=== PATIENT | female | born 1945 | race Caucasian/White ===

== ENCOUNTER → 2018-05-02 | Outpatient (CLI) | payer MEDICARE, MEDICAID ==
[~2018-05-02] MED LIST: ASCO-96 PO; CALCIUM PO; CHOL10003 PO; CLON-365 PO; CLOZ25TA6 PO; ESOM40CA PO; GARL10002 PO; GLIM2TAB2 PO; IRON PO; PROP1DRO6 EACHEYE; TRAM50TA2 PO
[2018-05-02 12:18] LABS: BASOPHILS # (AUTO) 0.05 x10^3/uL (0-0.1); BASOPHILS % (AUTO) 1 % (0-1); EOSINOPHILS # (AUTO) 0.16 x10^3/uL (0-0.4); EOSINOPHILS % (AUTO) 2 % (1-7); LYMPHOCYTES # (AUTO) 2.48 x10^3/uL (1-3.4); LYMPHOCYTES % (AUTO) 35 % (22-44); MD NO; MEAN CORPUSCULAR HEMOGLOBIN 29.2 pg (27.0-34.8); MEAN CORPUSCULAR HGB CONC 33.3 g/dL (32.4-35.8); MEAN CORPUSCULAR VOLUME 87.7 fL (80-100); MEAN PLATELET VOLUME 7.7 fL (7.4-10.4); MONOCYTES # (AUTO) 0.75 x10^3/uL (0.2-0.8); MONOCYTES % (AUTO) 11 % (2-9); NEUTROPHILS # (AUTO) 3.65 x10^3/uL (1.8-6.8); NEUTROPHILS % (AUTO) 51 % (42-75); PLATELET COUNT 298 x10^3/uL (130-400); RED BLOOD COUNT 4.84 x10^6/uL (3.82-5.3); RED CELL DISTRIBUTION WIDTH 15.6 % (9.6-15.2)
[2018-05-02 12:24] LABS: INTERNATIONAL NORMALIZED RATIO 0.99 (0.93-1.1); PROTHROMBIN TIME 10.2 Seconds (9.6-11.5)
[2018-05-02 12:29] LABS: CHLORIDE 107 mmol/L (98-107)
[2018-05-02 12:32] LABS: MICROSCOPIC NOT IND
[2018-05-02 12:35] LABS: CULTURE INDICATED? NO
[2018-05-02 12:37] LABS: ALANINE AMINOTRANSFERASE 24 U/L (12-78); ALBUMIN 3.8 g/dL (3.4-5.0); ALKALINE PHOSPHATASE 99 U/L (45-117); ANION GAP 6 mmol/L (5-15); BILIRUBIN,TOTAL 0.5 mg/dL (0.2-1.0); CALCIUM 9.3 mg/dL (8.5-10.1); CREATININE 0.67 mg/dL (0.55-1.02); TOTAL PROTEIN 8.2 g/dL (6.4-8.2)
== END | disposition home or self-care (01) ==
LOC: STAR 11:02
PROVIDERS: ATTEND Neurological Surgery
DX: Z01.818 Encounter for other preprocedural examination (principal); M51.36 Other intervertebral disc degeneration, lumbar region
CPT/HCPCS: 36415; 71046; 80053; 81003; 85025; 85610; 85730; 93005

== ENCOUNTER 2018-05-11 08:49 | Inpatient (IN) | payer MEDICARE, MEDICAID ==
[~2018-05-11] VITALS: Ht 157.5 cm; Wt 78.9 kg
[~2018-05-11 08:49] MED LIST changes: +BACITRACIN 50,000 UNIT ONE; +BUPIVACAINE 0.25% ONE; +BUPIVACAINE/PF 0.5% ONE; +EPINEPHRINE 1 MG/ML, 1ML ONE; +THROMBIN 20,000 UNIT VIAL TP ONE
[2018-05-11] MEDS ORDERED: LACTATED RINGERS 1,000 ML IV SCH (09:17)
[2018-05-11 09:24] VITALS: BP 144/97
[2018-05-11] MEDS ORDERED: FENTANYL PF 250 MCG/5ML ONE (09:37)
[2018-05-11] MEDS ORDERED: MIDAZOLAM 1 MG/ML, 2ML ONE (09:37)
[2018-05-11] MEDS ORDERED: ACETAMINOPHEN 500 MG TABLET PO ONE (10:00)
[2018-05-11] MEDS ORDERED: OxyconTIN ER 10 MG TAB.ER PO ONE (10:00)
[2018-05-11] MEDS ORDERED: GABAPENTIN 300 MG CAPSULE PO ONE (10:00)
[2018-05-11] MEDS ORDERED: DIAZEPAM 5 MG TABLET PO ONE (10:00)
[2018-05-11] MEDS ORDERED: PHENYLEPHRINE 10 MG/ML ONE (11:31)
[2018-05-11] MEDS ORDERED: DIAZEPAM 5 MG/ML, 2ML IVPush PRN (12:30)
[2018-05-11] MEDS ORDERED: hydrALAzine 20 MG/ML, 1ML IV PRN (12:30)
[2018-05-11] MEDS ORDERED: ALBUTEROL/IPRATROPIUM 2.5MG/0.5MG, 3 ML NPPB PRN (12:30)
[2018-05-11] MEDS ORDERED: FENTANYL PF 100 MCG/2ML IV PRN (12:30)
[2018-05-11] MEDS ORDERED: MIDAZOLAM 1 MG/ML, 2ML IV PRN (12:30)
[2018-05-11] MEDS ORDERED: MORPHINE SULFATE 4 MG/ML, 1ML IVPush PRN (12:30)
[2018-05-11] MEDS ORDERED: MEPERIDINE/PF 25MG/0.5ML IVPush PRN (12:30)
[2018-05-11] MEDS ORDERED: ONDANSETRON ODT 8 MG PO PRN (12:30)
[2018-05-11] MEDS ORDERED: EPHEDRINE 50 MG/ML, 1ML IM PRN (12:30)
[2018-05-11] MEDS ORDERED: OXYcodone 5 MG/5 ML ORAL.SOL UDC PO PRN (12:30)
[2018-05-11] MEDS ORDERED: PROMETHAZINE 25 MG/ML, 1ML IV PRN (12:30)
[2018-05-11] MEDS ORDERED: BUPIVACAINE/PF-EPI 0.5% 1:200K IM ONE (12:31)
[2018-05-11] MEDS ORDERED: SUCCINYLCHOLINE 20 MG/ML, 10ML ONE (13:00)
[2018-05-11] MEDS ORDERED: NEOSTIGMINE 1 MG/ML, 10ML ONE (13:00)
[2018-05-11] MEDS ORDERED: ROCURONIUM 10MG/ML,5ML ONE (13:00)
[2018-05-11] MEDS ORDERED: ONDANSETRON 2MG/ML, 2ML ONE (13:00)
[2018-05-11] MEDS ORDERED: PROPOFOL 50 ML ONE ×2 (13:00→14:38)
[2018-05-11] MEDS ORDERED: PROPOFOL 10 MG/ML, 20ML ONE (13:00)
[2018-05-11] MEDS ORDERED: DEXAMETHASONE 4 MG/ML, 1ML ONE (13:00)
[2018-05-11] MEDS ORDERED: GLYCOPYRROLATE 0.2MG/1ML, 5ML ONE (13:00)
[2018-05-11] MEDS ORDERED: CEFAZOLIN 1,000 MG ONE (13:00)
[2018-05-11] MEDS ORDERED: FENTANYL PF 100 MCG/2ML ONE ×3 (14:10→16:09)
[2018-05-11] MEDS ORDERED: BUPIVACAINE LIPOSOME/PF INFIL ONE (14:16)
[2018-05-11] MEDS ORDERED: BUPIVACAINE 0.25% ONE (14:20)
[2018-05-11] MEDS ORDERED: MEPERIDINE/PF 50 MG/ML ONE (16:04)
[2018-05-11] MEDS ORDERED: HYDROmorphone 2 MG/ML, 1ML ONE (16:14)
[2018-05-11] MEDS: HYDROmorphone 1 MG/ML, 1ML IV PRN ×3 (16:20→16:38)
[2018-05-11] MEDS: LABETALOL 5MG/ML, 20ML IV PRN ×2 (16:55→17:03)
[2018-05-11] MEDS ORDERED: LABETALOL 5MG/ML, 20ML ONE (16:55)
[2018-05-11] MEDS ORDERED: HYDROcodone/APAP 5/325 TABLET PO PRN (18:00)
[2018-05-11] MEDS ORDERED: LABETALOL 5MG/ML, 20ML IV PRN (18:00)
[2018-05-11] MEDS ORDERED: ONDANSETRON 2MG/ML, 2ML IV PRN (18:00)
[2018-05-11] MEDS ORDERED: BISACODYL 10 MG SUPP PR PRN (18:00)
[2018-05-11 19:20] VITALS: BP 167/69
[2018-05-11] MEDS: METHOCARBAMOL 750 MG TABLET PO PRN (19:52)
[2018-05-11] MEDS: NS + 20MEQ KCL 1,000 ML IV SCH (20:18)
[2018-05-11] MEDS: CEFAZOLIN PMX 1GM/50ML 50 ML IVPB SCH (20:18)
[2018-05-11] MEDS: CLOZAPINE 100 MG TABLET HOMEMEDPO SCH (21:00)
[2018-05-11] MEDS: INSULIN REGULAR 100 UNITS/ML, 3ML VIAL SQ-INSULIN SCH (21:00)
[2018-05-11] MEDS: SYSTANE OP SCH (21:00)
[2018-05-11] MEDS: ASCORBIC ACID 500 MG TABLET PO SCH (21:11)
[2018-05-11] MEDS: HYDROcodone/APAP 10/325 MG TABLET PO PRN (21:11)
[2018-05-11] MEDS: morphine SULFATE 10 MG/ML, 1ML IV PRN ×2 (23:12→23:31)
[2018-05-12 00:54] VITALS: BP 144/64
[2018-05-12] MEDS: HYDROcodone/APAP 10/325 MG TABLET PO PRN ×6 (02:10→22:37)
[2018-05-12] MEDS: METHOCARBAMOL 750 MG TABLET PO PRN ×3 (03:44→21:24)
[2018-05-12] MEDS: CEFAZOLIN PMX 1GM/50ML 50 ML IVPB SCH (03:44)
[2018-05-12] MEDS: NS + 20MEQ KCL 1,000 ML IV SCH ×2 (03:55→14:00)
[2018-05-12] MEDS: SYSTANE OP SCH ×4 (03:55→21:19)
[2018-05-12 04:07] VITALS: BP 144/70
[2018-05-12 04:47] LABS: BASOPHILS # (AUTO) 0.01 x10^3/uL (0-0.1); BASOPHILS % (AUTO) 0 % (0-1); EOSINOPHILS % (AUTO) 0 % (1-7); LYMPHOCYTES # (AUTO) 1.34 x10^3/uL (1-3.4); LYMPHOCYTES % (AUTO) 10 % (22-44); MD NO; MEAN CORPUSCULAR HEMOGLOBIN 29.4 pg (27.0-34.8); MEAN CORPUSCULAR HGB CONC 33.2 g/dL (32.4-35.8); MEAN CORPUSCULAR VOLUME 88.5 fL (80-100); MONOCYTES # (AUTO) 0.96 x10^3/uL (0.2-0.8); MONOCYTES % (AUTO) 7 % (2-9); NEUTROPHILS # (AUTO) 11.06 x10^3/uL (1.8-6.8); NEUTROPHILS % (AUTO) 83 % (42-75); PLATELET COUNT 269 x10^3/uL (130-400); RED BLOOD COUNT 4.23 x10^6/uL (3.82-5.3); RED CELL DISTRIBUTION WIDTH 15.3 % (9.6-15.2)
[2018-05-12 04:58] LABS: CHLORIDE 108 mmol/L (98-107)
[2018-05-12 05:02] LABS: ANION GAP 8 mmol/L (5-15); CALCIUM 8.6 mg/dL (8.5-10.1); CREATININE 0.77 mg/dL (0.55-1.02)
[2018-05-12] MEDS: ENOXAPARIN 40 MG/0.4 ML SQ SCH (06:23)
[2018-05-12] MEDS: INSULIN REGULAR 100 UNITS/ML, 3ML VIAL SQ-INSULIN SCH ×4 (07:00→21:00)
[2018-05-12 07:04] VITALS: BP 123/68
[2018-05-12] MEDS ORDERED: PANTOPROZOLE 40MG TABLET PO SCH (07:30)
[2018-05-12] MEDS: GLIMEPIRIDE 1 MG TABLET PO SCH (08:13)
[2018-05-12] MEDS: SENNA/DOCUSATE TABLET PO SCH (08:15)
[2018-05-12] MEDS: ASCORBIC ACID 500 MG TABLET PO SCH ×2 (08:17→21:18)
[2018-05-12] MEDS: CHOLECALCIFEROL 400 UNITS TABLET PO SCH (08:19)
[2018-05-12] MEDS: DOXYCYCLINE 100MG TABLET PO SCH ×2 (08:20→21:18)
[2018-05-12] MEDS ORDERED: CHOLECALCIFEROL 400 UNITS TABLET PO SCH (09:00)
[2018-05-12] MEDS: CLOZAPINE 100 MG TABLET HOMEMEDPO SCH ×3 (09:00→21:20)
[2018-05-12 12:58] VITALS: BP 127/73
[2018-05-12 19:09] VITALS: BP 132/69
[2018-05-13 01:11] VITALS: BP 139/75
[2018-05-13] MEDS: HYDROcodone/APAP 10/325 MG TABLET PO PRN ×3 (02:42→20:37)
[2018-05-13 04:52] LABS: BASOPHILS # (AUTO) 0.05 x10^3/uL (0-0.1); BASOPHILS % (AUTO) 0 % (0-1); EOSINOPHILS # (AUTO) 0.11 x10^3/uL (0-0.4); EOSINOPHILS % (AUTO) 1 % (1-7); LYMPHOCYTES # (AUTO) 1.57 x10^3/uL (1-3.4); LYMPHOCYTES % (AUTO) 11 % (22-44); MD NO; MEAN CORPUSCULAR HGB CONC 33.9 g/dL (32.4-35.8); MEAN CORPUSCULAR VOLUME 88.3 fL (80-100); MEAN PLATELET VOLUME 7.9 fL (7.4-10.4); MONOCYTES # (AUTO) 1.34 x10^3/uL (0.2-0.8); MONOCYTES % (AUTO) 10 % (2-9); NEUTROPHILS # (AUTO) 10.65 x10^3/uL (1.8-6.8); NEUTROPHILS % (AUTO) 78 % (42-75); PLATELET COUNT 252 x10^3/uL (130-400); RED BLOOD COUNT 4.16 x10^6/uL (3.82-5.3); RED CELL DISTRIBUTION WIDTH 16.2 % (9.6-15.2)
[2018-05-13] MEDS: ENOXAPARIN 40 MG/0.4 ML SQ SCH (06:03)
[2018-05-13] MEDS: SYSTANE OP SCH ×4 (06:04→20:53)
[2018-05-13] MEDS: METHOCARBAMOL 750 MG TABLET PO PRN (06:04)
[2018-05-13] MEDS: INSULIN REGULAR 100 UNITS/ML, 3ML VIAL SQ-INSULIN SCH ×4 (06:25→20:48)
[2018-05-13 07:00] VITALS: BP 114/68
[2018-05-13] MEDS: DOXYCYCLINE 100MG TABLET PO SCH ×2 (09:04→20:39)
[2018-05-13] MEDS: SENNA/DOCUSATE TABLET PO SCH (09:04)
[2018-05-13] MEDS: GLIMEPIRIDE 1 MG TABLET PO SCH (09:05)
[2018-05-13] MEDS: ASCORBIC ACID 500 MG TABLET PO SCH ×2 (09:06→20:39)
[2018-05-13] MEDS: NEXIUM HOMEMEDPO SCH (09:09)
[2018-05-13] MEDS: CLOZAPINE 100 MG TABLET HOMEMEDPO SCH ×2 (09:09→20:52)
[2018-05-13] MEDS: NS + 20MEQ KCL 1,000 ML IV SCH ×3 (09:49→20:00)
[2018-05-13] MEDS: CHOLECALCIFEROL 400 UNITS TABLET PO SCH (10:02)
[2018-05-13 14:30] VITALS: BP 98/65
[2018-05-13 17:57] VITALS: BP 147/50
[2018-05-13 20:35] VITALS: BP 132/81
[2018-05-13] MEDS: KETOROLAC 30 MG/1 ML IM PRN (20:40)
[2018-05-14 02:50] VITALS: BP 134/79
[2018-05-14 05:22] LABS: MEAN CORPUSCULAR HEMOGLOBIN 29.9 pg (27.0-34.8); MEAN CORPUSCULAR HGB CONC 33.5 g/dL (32.4-35.8); MEAN CORPUSCULAR VOLUME 89.1 fL (80-100); PLATELET COUNT 261 x10^3/uL (130-400); RED BLOOD COUNT 4.28 x10^6/uL (3.82-5.3); RED CELL DISTRIBUTION WIDTH 16.1 % (9.6-15.2)
[2018-05-14] MEDS: ENOXAPARIN 40 MG/0.4 ML SQ SCH (05:29)
[2018-05-14] MEDS: SYSTANE OP SCH ×4 (05:29→22:05)
[2018-05-14] MEDS: NS + 20MEQ KCL 1,000 ML IV SCH ×2 (05:29→16:47)
[2018-05-14] MEDS: HYDROcodone/APAP 10/325 MG TABLET PO PRN ×4 (05:29→22:07)
[2018-05-14] MEDS: INSULIN REGULAR 100 UNITS/ML, 3ML VIAL SQ-INSULIN SCH ×4 (05:58→21:00)
[2018-05-14 06:22] LABS: BASOPHILS # (AUTO) 0.01 x10^3/uL (0-0.1); BASOPHILS % (AUTO) 0 % (0-1); EOSINOPHILS % (AUTO) 1 % (1-7); LYMPHOCYTES # (AUTO) 1.62 x10^3/uL (1-3.4); LYMPHOCYTES % (AUTO) 12 % (22-44); MD SCAN; MONOCYTES # (AUTO) 1.64 x10^3/uL (0.2-0.8); MONOCYTES % (AUTO) 12 % (2-9); NEUTROPHILS # (AUTO) 10.61 x10^3/uL (1.8-6.8); NEUTROPHILS % (AUTO) 75 % (42-75)
[2018-05-14 07:09] VITALS: BP 117/77
[2018-05-14] MEDS: CHOLECALCIFEROL 400 UNITS TABLET PO SCH (07:57)
[2018-05-14] MEDS: ASCORBIC ACID 500 MG TABLET PO SCH ×2 (07:58→22:06)
[2018-05-14] MEDS: GLIMEPIRIDE 1 MG TABLET PO SCH (07:58)
[2018-05-14] MEDS: DOXYCYCLINE 100MG TABLET PO SCH ×2 (07:58→22:06)
[2018-05-14] MEDS: SENNA/DOCUSATE TABLET PO SCH (07:59)
[2018-05-14] MEDS: CLOZAPINE 100 MG TABLET HOMEMEDPO SCH ×2 (08:04→22:04)
[2018-05-14] MEDS: NEXIUM HOMEMEDPO SCH (08:04)
[2018-05-14] MEDS: IRON 27 MG HOMEMEDPO SCH (08:05)
[2018-05-14] MEDS: CALCIUM 600 MG HOMEMEDPO SCH ×2 (08:05→21:00)
[2018-05-14] MEDS ORDERED: CEFTRIAXONE PMX 1GM/50ML 50 ML IV ONE (09:00)
[2018-05-14] MEDS ORDERED: MAGNESIUM CITRATE 300ML ORAL SOL PO PRN (09:00)
[2018-05-14] MEDS: POLYETHYLENE GLYCOL 17 GM PACKET PO SCH (09:57)
[2018-05-14 14:00] VITALS: BP 133/68
[2018-05-14 19:44] VITALS: BP 114/68
[2018-05-14] MEDS: METHOCARBAMOL 750 MG TABLET PO PRN (22:06)
[2018-05-14] MEDS: KETOROLAC 30 MG/1 ML IM PRN (22:37)
[2018-05-15] MEDS: NS + 20MEQ KCL 1,000 ML IV SCH ×2 (02:00→11:53)
[2018-05-15 05:06] LABS: BASOPHILS % (AUTO) 0 % (0-1); EOSINOPHILS # (AUTO) 0.28 x10^3/uL (0-0.4); EOSINOPHILS % (AUTO) 2 % (1-7); LYMPHOCYTES # (AUTO) 1.28 x10^3/uL (1-3.4); LYMPHOCYTES % (AUTO) 11 % (22-44); MD NO; MEAN CORPUSCULAR HEMOGLOBIN 29.3 pg (27.0-34.8); MEAN CORPUSCULAR HGB CONC 33.1 g/dL (32.4-35.8); MEAN CORPUSCULAR VOLUME 88.5 fL (80-100); MEAN PLATELET VOLUME 7.9 fL (7.4-10.4); MONOCYTES % (AUTO) 8 % (2-9); NEUTROPHILS # (AUTO) 9.44 x10^3/uL (1.8-6.8); NEUTROPHILS % (AUTO) 79 % (42-75); PLATELET COUNT 293 x10^3/uL (130-400); RED BLOOD COUNT 4.06 x10^6/uL (3.82-5.3); RED CELL DISTRIBUTION WIDTH 15.7 % (9.6-15.2)
[2018-05-15 05:16] LABS: ANION GAP 8 mmol/L (5-15); CALCIUM 8.3 mg/dL (8.5-10.1); CHLORIDE 106 mmol/L (98-107); CREATININE 0.84 mg/dL (0.55-1.02)
[2018-05-15] MEDS: SYSTANE OP SCH ×2 (06:00→11:00)
[2018-05-15] MEDS: INSULIN REGULAR 100 UNITS/ML, 3ML VIAL SQ-INSULIN SCH ×2 (06:27→11:00)
[2018-05-15] MEDS: ENOXAPARIN 40 MG/0.4 ML SQ SCH (06:28)
[2018-05-15 06:50] VITALS: BP 112/71
[2018-05-15] MEDS: HYDROcodone/APAP 10/325 MG TABLET PO PRN ×2 (07:44→12:03)
[2018-05-15] MEDS: CALCIUM 600 MG HOMEMEDPO SCH (08:43)
[2018-05-15] MEDS: IRON 27 MG HOMEMEDPO SCH (08:43)
[2018-05-15] MEDS: ASCORBIC ACID 500 MG TABLET PO SCH (08:53)
[2018-05-15] MEDS: GLIMEPIRIDE 1 MG TABLET PO SCH (08:53)
[2018-05-15] MEDS: CHOLECALCIFEROL 400 UNITS TABLET PO SCH (08:53)
[2018-05-15] MEDS: SENNA/DOCUSATE TABLET PO SCH (08:54)
[2018-05-15] MEDS: POLYETHYLENE GLYCOL 17 GM PACKET PO SCH (08:54)
[2018-05-15] MEDS: DOXYCYCLINE 100MG TABLET PO SCH (08:54)
[2018-05-15] MEDS: CLOZAPINE 100 MG TABLET HOMEMEDPO SCH (08:55)
[2018-05-15] MEDS: NEXIUM HOMEMEDPO SCH (08:56)
[2018-05-15] MEDS ORDERED: HYDR-3307 PO (12:16)
[2018-05-15] MEDS ORDERED: DOXY100T PO (12:16)
[2018-05-15] MEDS ORDERED: METH750T87 PO (12:16)
== END 2018-05-15 13:00 | disposition home or self-care (01) | DRG 454 ==
LOC: ORIP 08:49 → 4NOR 17:29 → DCLOUNGE 05-15 12:42
PROVIDERS: ADMIT Neurological Surgery; ATTEND Neurological Surgery
PROC: 0SG0071 Fusion of Lumbar Vertebral Joint with Autologous Tissue Substitute, Posterior Approach, Posterior Column, Open Approach (ICD-10-PCS; 2018-05-11)
PROC: 0SB20ZZ Excision of Lumbar Vertebral Disc, Open Approach (ICD-10-PCS; 2018-05-11)
PROC: 01NB0ZZ Release Lumbar Nerve, Open Approach (ICD-10-PCS; 2018-05-11)
PROC: 4A11X4G Monitoring of Peripheral Nervous Electrical Activity, Intraoperative, External Approach (ICD-10-PCS; 2018-05-11)
PROC: 0SG00A0 Fusion of Lumbar Vertebral Joint with Interbody Fusion Device, Anterior Approach, Anterior Column, Open Approach (ICD-10-PCS; principal; 2018-05-11 11:30)
DX: M48.062 Spinal stenosis, lumbar region with neurogenic claudication (principal); J98.11 Atelectasis; D72.829 Elevated white blood cell count, unspecified; G89.29 Other chronic pain; M43.16 Spondylolisthesis, lumbar region; M54.5 Low back pain; M51.16 Intervertebral disc disorders with radiculopathy, lumbar region; Z88.8 Allergy status to other drugs, medicaments and biological substances
CPT/HCPCS: 36415; 72100; 80048; 82962; 85025; C1713; C9290; J0171; J0690; J0696; J1100; J1170; J1650; J1815; J1885; J2175; J2250; J2405; J2704; J2710; J3010; J3480; J3490; C1760; C1762; J0330; J2270; J2370; J7120